=== PATIENT | female | born 1995 | race Caucasian/White ===

== ENCOUNTER 2021-10-21 08:59 | Outpatient (CLI) | payer OTHER | END 2021-10-21 09:00 | disposition home or self-care (01) | LOC: DTY/OP 08:59 | PROVIDERS: ATTEND Surgery | DX: E66.01 Morbid (severe) obesity due to excess calories (principal) | CPT/HCPCS: 97802 ==

== ENCOUNTER 2021-12-02 08:32 | Outpatient (CLI) | payer OTHER | END 2021-12-02 08:33 | disposition home or self-care (01) | LOC: BICULT 08:32 | PROVIDERS: ATTEND Surgery | DX: E66.01 Morbid (severe) obesity due to excess calories (principal) | CPT/HCPCS: 76705 ==